=== PATIENT | male | born 1965 | race Caucasian/White ===

== ENCOUNTER 2017-08-21 09:18 | Emergency (ER) | payer BC ==
[2017-08-21] MEDS ORDERED: FENTANYL CITRATE INJ/PF 100 MCG/2 ML AMPUL IV ONE (09:44)
[2017-08-21] MEDS ORDERED: VANCOMYCIN HCL INJ 1000 MG VIAL IV ONE (09:44)
[2017-08-21] MEDS ORDERED: PIPERACILLIN/TAZOBACTAM 3.375 GM VIAL IV ONE (09:44)
--- NOTE | 2017-08-21 09:46 | ER Document Report ---
ED Medical Screen (RME) - General Chief Complaint: Hand Swelling Stated Complaint: RIGHT ARM SWELLING Time Seen by Provider: 08/21/17 09:41 Mode of Arrival: Ambulatory Information source: Patient Notes: 52-year-old male presents with complaints of right hand swelling over the past 2 weeks. Patient notes he had a cut on his hand that he treat himself, notes symptoms have been worsening over the past few days patient does have a history of gout I have greeted and performed a rapid initial assessment of this patient. A comprehensive ED assessment and evaluation of the patient, analysis of test results and completion of the medical decision making process will be conducted by additional ED providers. PHYSICAL EXAMINATION: GENERAL: Well-appearing, well-nourished and in mild distress. HEAD: Atraumatic, normocephalic. EYES: Pupils equal round extraocular movements intact, conjunctiva are normal. ENT: Nares patent NECK: Normal range of motion LUNGS: No respiratory distress Musculoskeletal: Right hand swelling area of erythema at the second metacarpal NEUROLOGICAL: Normal speech, normal gait. PSYCH: Normal mood, normal affect. SKIN: Erythema small blistering of the right hand TRAVEL OUTSIDE OF THE [place] IN LAST 30 DAYS: No - Related Data Allergies/Adverse Reactions: No Known Allergies Allergy (Verified 08/21/17 09:19) Past Medical History - Social History Chew tobacco use (# tins/day): No Frequency of alcohol use: None Drug Abuse: None - Past Medical History Cardiac Medical History: Reports: Hx Hypercholesterolemia, Hx Hypertension Pulmonary Medical History: Reports: Hx Pneumonia Denies: Hx Tuberculosis Renal/ Medical History: Denies: Hx Peritoneal Dialysis GI Medical History: Reports: Hx Gastroesophageal Reflux Disease Musculoskeltal Medical History: Reports Hx Arthritis Traumatic Medical History: Reports: Hx Fractures Past Surgical History: Reports: Hx Abdominal Surgery. Denies: Hx Pacemaker - Immunizations Hx Diphtheria, Pertussis, Tetanus Vaccination: No Physical Exam - Vital signs Vitals: Temp Pulse Resp BP Pulse Ox 98.1 F 66 14 137/67 H 100 08/21/17 09:23 08/21/17 09:23 08/21/17 09:23 08/21/17 09:23 08/21/17 09:23 Course - Vital Signs Vital signs: Temp Pulse Resp BP Pulse Ox 98.1 F 66 14 137/67 H 100 08/21/17 09:23 08/21/17 09:23 08/21/17 09:23 08/21/17 09:23 08/21/17 09:23
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
[2017-08-21] MEDS ORDERED: DIPH/PERTUSS(ACELL)/TETANUS VAC/PF 0.5 ML SYR (>=10YO) IM ONE (10:28)
[2017-08-21] MEDS ORDERED: KETOROLAC TROMETHAMINE INJ/PF 30 MG/1 ML SDV IV ONE (10:29)
[2017-08-21 10:37] LABS: ABSOLUTE EOSINOPHILS # (AUTO) 0.4 10^3/uL (0.0-0.6); ABSOLUTE LYMPHOCYTES (AUTO) 2.1 10^3/uL (0.5-4.7); ABSOLUTE MONOCYTES (AUTO) 0.6 10^3/uL (0.1-1.4); ABSOLUTE NEUT (AUTO) 4.7 10^3/uL (1.7-8.2); BASOPHILS % (AUTO) 0.5 % (0-2); EOSINOPHILS % (AUTO) 4.8 % (0-6); HEMATOCRIT 40.5 % (37.9-51.0); MEAN CORPUSCULAR HEMOGLOBIN 35.4 pg (27.0-33.4); MEAN CORPUSCULAR HGB CONC 34.5 g/dL (32.0-36.0); MEAN CORPUSCULAR VOLUME 103 fl (80-97); MONOCYTES % (AUTO) 7.5 % (3-13); PLATELET COUNT 156 10^3/uL (150-450); RED BLOOD COUNT 3.95 10^6/uL (4.35-5.55); SEGMENTED NEUTROPHILS % (AUTO) 60.2 % (42-78); TOTAL CELLS COUNTED % (AUTO) 100 %; WHITE BLOOD COUNT 7.8 10^3/uL (4.0-10.5)
[2017-08-21 11:01] LABS: ALANINE AMINOTRANSFERASE 36 U/L (21-72); ALBUMIN 4.4 g/dL (3.5-5.0); ALKALINE PHOSPHATASE 65 U/L (38-126); ANION GAP 13 (5-19); ASPARTATE AMINO TRANSFERASE 30 U/L (17-59); BILIRUBIN,DIRECT 0.3 mg/dL (0.0-0.4); BILIRUBIN,TOTAL 0.4 mg/dL (0.2-1.3); BLOOD UREA NITROGEN 20 mg/dL (7-20); CALCIUM 9.6 mg/dL (8.4-10.2); CARBON DIOXIDE 24 mmol/L (22-30); CHLORIDE 105 mmol/L (98-107); GLUCOSE 102 mg/dL (75-110); POTASSIUM 4.5 mmol/L (3.6-5.0); TOTAL PROTEIN 7.6 g/dL (6.3-8.2)
--- NOTE | 2017-08-21 12:02 | RADIOLOGY REPORT (SQ) ---
EXAM DESCRIPTION: CT RT UPPER EXTREMITY WITH COMPLETED DATE/TIME: 08/21/2017 11:29 am REASON FOR STUDY: right hand swelling , abscess? COMPARISON: None. TECHNIQUE: Postcontrast axial imaging performed through the right distal forearm and hand with refor matted coronal and sagittal imaging windowed for bone and soft tissues. Images saved to PACS. 3D IMAGING: Were 3D images as MIP, SSD, or volume rendering performed at the work station? No All CT scanners at this facility use dose modulation, iterative reconstruction, and/or weight based d osing when appropriate to reduce radiation dose to as low as reasonably achievable (ALARA). [facility]: Dose Right [facility]: CareDose [facility]: Dose Right [facility]: Teradose 4D [facility]: [employer] CONTRAST TYPE AND DOSE: contrast/concentration: Isovue 370.00 mg/ml; Total Contrast Delivered: 70.0 ml; Total Saline Delivered: 60.0 ml RENAL FUNCTION: BUN 20 creatinine 0.86 LIMITATIONS: None. RADIATION DOSE: CT Rad equipment meets quality standard of care and radiation dose reduction techniq ues were employed. CTDIvol: 2.6 mGy. DLP: 86 mGy-cm.mGy. FINDINGS: SOFT TISSUES: Soft tissue planes are maintained. There is mild subcutaneous edema. No ab scess is appreciated. BONES: No acute fracture or dislocation. There is deformity of the 5th metacarpal suggesting a prior injury. MINERALIZATION: Normal. ENHANCEMENT: No abnormal enhancement. OTHER: No other significant finding. IMPRESSION: Subcutaneous edema. No abscess is appreciated. No abnormal enhancement. TECHNICAL DOCUMENTATION: JOB ID: [id number] Quality ID # [id number]: Final reports with documentation of one or more dose reduction techniques (e.g., Au tomated exposure control, adjustment of the mA and/or kV according to patient size, use of iterative reconstruction technique) 2010 [employer]- All Rights Reserved Reading location - IP/workstation name: [email or web address]
[2017-08-21 14:24] VITALS: BP 118/62
== END 2017-08-21 14:52 | disposition home or self-care (01) ==
LOC: ER 09:18
DX: L03.113 Cellulitis of right upper limb (principal); S61.411A Laceration without foreign body of right hand, initial encounter; M79.89 Other specified soft tissue disorders; X58.XXXA Exposure to other specified factors, initial encounter; Z87.891 Personal history of nicotine dependence; I10 Essential (primary) hypertension
CPT/HCPCS: 99284; 90471; 96375; 96365; 96366; 96367; 36415; 87040; 85025; 80053; 73201; 90715; J3010; J1885; J3370; J2543